=== PATIENT | female | born 1985 | race Two or more races ===

== ENCOUNTER 2016-08-02 16:37 | Emergency (ER) | payer OTHER ==
[2016-08-02 16:50] VITALS: TEMP 98.1
--- NOTE | 2016-08-02 17:16 | EDPHY ---
H & P Time Seen by Provider: 08/02/16 16:59 HPI/ROS: CHIEF COMPLAINT: Right abdominal pain HISTORY OF PRESENT ILLNESS: This 30-year-old woman had her last menstrual period 2 weeks ago. She was feeling fine on Wednesday and then Wednesday around noon she started developing pain in the right lower quadrant. It is worse with palpation and movement and associated with some nausea and diarrhea but no vomiting or fever. Persisted today, does not radiate, presents for evaluation. Symptoms mild to moderate. REVIEW OF SYSTEMS: Eye: no change in vision ENT: no sore throat Cardiac: no chest pain or syncope Pulmonary: no cough or SOB Abdomen: HPI Musculoskeletal: no back pain Skin: Right forearm burn at work Neuro: Mild headache, 1-2 days. Constitutional: no fever : no urinary symptoms A comprehensive 10 point review of systems is otherwise negative aside from elements mentioned in the history of present illness. 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 Eyes: No scleral icterus. ENT, Mouth: Normal mucous membranes. Respiratory: Normal respiratory effort, breath sounds equal, lungs are clear to auscultation. Cardiovascular: Regular rate and rhythm. Gastrointestinal: Mild right lower quadrant abdominal tenderness near the inguinal area but no rebound or guarding. No hernia appreciated. Not tender over McBurney's point. Neurological: Alert and oriented x3. Normally conversant. Face symmetric, normal movement and sensation in all extremities. Skin: Warm and dry, healing burn on the right forearm without cellulitis. Musculoskeletal: No peripheral edema and no joint swelling. Psychiatric: Not agitated. Emergency Department course/MDM: Declined pain medication. Plan for labs to include test, ultrasound of right ovary and appendix. 181: Ultrasound per Mely shows nonvisualized appendix but no secondary signs of appendicitis, normal pelvic ultrasound with incidental 3 cm left ovarian cyst. 182: Results discussed in detail. Without dysuria or hematuria or any urinary symptoms I think UTI is unlikely. Results discussed, appendicitis precautions given. Think the most reasonable thing is continued observation, patient is in agreement. 191: Urine dip negative except for ketones. Smoking Status: Never smoked Constitutional: Initial Vital Signs Temperature (C) 36.7 C 08/02/16 16:47 Heart Rate 66 08/02/16 16:47 Respiratory Rate 20 08/02/16 16:47 Blood Pressure 117/75 08/02/16 16:47 O2 Sat (%) 98 08/02/16 16:47 O2 Delivery Mode Room Air Allergies/Adverse Reactions: doxycycline Allergy (Verified 08/02/16 16:46) ondansetron HCl [From Zofran (as hydrochloride)] Allergy (Verified 08/02/16 16: 46) Home Medications: Medication Instructions Recorded Marixa Allergy 08/02/16 Flonase Allergy Relief 08/02/16 Medical Decision Making - Diagnostics Imaging Results: Imaging Impressions Abdomen Ultrasound 08/02/16 17:13 Impression: Nonvisualization of the appendix with no secondary evidence of appendicitis. Findings discussed with BONY COLÓN 08/02/2016 at 18:15. Pelvic/Renal Ultrasound 08/02/16 17:13 Impression: Normal pelvic ultrasound. Findings discussed with BONY COLÓN 08/02/2016 at 18:15. Differential Diagnosis: Differential considered including but not limited to PID, appendicitis, ovarian torsion, ovarian cyst, UTI. - Data Points Laboratory Results: Laboratory Results 08/02/16 17:04 08/02/16 17:04 08/02/16 08/02/16 08/02/16 17:04 17:04 17:04 WBC 5.78 10^3/uL 10^3/uL (3.80-9.50) RBC 4.33 10^6/uL 10^6/uL (4.18-5.33) Hgb 13.4 g/dL g/dL (12.6-16.3) Hct 39.4 % % (38.0-47.0) MCV 91.0 fL fL (81.5-99.8) MCH 30.9 pg pg (27.9-34.1) MCHC 34.0 g/dL g/dL (32.4-36.7) RDW 12.2 % % (11.5-15.2) Plt Count 198 10^3/uL 10^3/uL (150-400) MPV 10.1 fL fL (8.7-11.7) Neut % (Auto) 61.1 % % (39.3-74.2) Lymph % (Auto) 27.5 % % (15.0-45.0) [place] % (Auto) 9.7 % % (4.5-13.0) Eos % (Auto) 1.0 % % (0.6-7.6) Baso % (Auto) 0.5 % % (0.3-1.7) Nucleat RBC Rel Count 0.0 % % (0.0-0.2) Absolute Neuts (auto) 3.53 10^3/uL 10^3/uL (1.70-6.50) Absolute Lymphs (auto) 1.59 10^3/uL 10^3/uL (1.00-3.00) Absolute Monos (auto) 0.56 10^3/uL 10^3/uL (0.30-0.80) Absolute Eos (auto) 0.06 10^3/uL 10^3/uL (0.03-0.40) Absolute Basos (auto) 0.03 10^3/uL 10^3/uL (0.02-0.10) Absolute Nucleated RBC 0.00 10^3/uL 10^3/uL (0-0.01) Immature Gran % 0.2 % % (0.0-1.1) Immature Gran # 0.01 10^3/uL 10^3/uL (0.00-0.10) Sodium 136 mEq/L mEq/L (134-144) Potassium 3.8 mEq/L mEq/L (3.5-5.2) Chloride 106 mEq/L mEq/L (97-110) Carbon Dioxide 22 mEq/l mEq/l (22-31) Anion Gap 8 mEq/L mEq/L (8-16) BUN 13 mg/dL mg/dL (7-23) Creatinine 0.7 mg/dL mg/dL (0.6-1.0) Estimated GFR > 60 Glucose 88 mg/dL mg/dL (70-100) Calcium 9.3 mg/dL mg/dL (8.5-10.4) Beta HCG, Qual NEGATIVE Departure - Departure Disposition: Home, Routine, Self-Care Clinical Impression: Abdominal pain Qualifiers: Abdominal location: right lower quadrant Qualified Code(s): R10.31 - Right lower quadrant pain Condition: Good Instructions: Acute Abdominal Pain (ED) Additional Instructions: You need to return to the emergency department immediately if you develop worsening or severe pain, fever, vomiting or you are not completely better in 8- 12 hours. You had an incidental 3 cm left ovarian cyst seen on ultrasound. Referrals: JAMES SIMMONS [Other] - As per Instructions
[2016-08-02 17:18] LABS: % IMMATURE GRANULYOCYTES 0.2 % (0.0-1.1); ABSOLUTE IMMATURE GRANULOCYTES 0.01 10^3/uL (0.00-0.10); ADD DIFF? NO; ADD MORPH? NO; ADD SCAN? NO; ATYPICAL LYMPHOCYTE FLAG 30 (0-99); FRAGMENT RBC FLAG 0 (0-99); HEMATOCRIT 39.4 % (38.0-47.0); HEMOGLOBIN 13.4 g/dL (12.6-16.3); LEFT SHIFT FLG 0 (0-99); LIPEMIA HEMOLYSIS FLAG 90 (0-99); MEAN CELL HEMOGLOBIN 30.9 pg (27.9-34.1); MEAN PLATELET VOLUME 10.1 fL (8.7-11.7); PLATELET CLUMPS FLAG 10 (0-99); PLATELET COUNT 198 10^3/uL (150-400); RED BLOOD CELL COUNT 4.33 10^6/uL (4.18-5.33); RED CELL DISTRIBUTION WIDTH 12.2 % (11.5-15.2)
[2016-08-02 17:27] LABS: ANION GAP 8 mEq/L (8-16); CALCIUM 9.3 mg/dL (8.5-10.4); CARBON DIOXIDE 22 mEq/l (22-31); CHLORIDE 106 mEq/L (97-110); CREATININE 0.7 mg/dL (0.6-1.0); GLOMERULAR FILTRATION RATE > 60; GLUCOSE 88 mg/dL (70-100); POTASSIUM 3.8 mEq/L (3.5-5.2); SODIUM 136 mEq/L (134-144)
[2016-08-02 19:27] VITALS: BP 119/74; PULSE 59; RESP 16; O2SAT 94
== END 2016-08-02 19:26 | disposition home or self-care (01) ==
DX: R10.31 Right lower quadrant pain (principal)